=== PATIENT | male | born 1945 | race Caucasian/White ===

== ENCOUNTER 2021-11-21 21:25 | Emergency (ER) | payer OTHER | END 2021-11-22 01:23 | disposition short-term general hospital (02) | LOC: ED 21:25 | DX: S43.004A Unspecified dislocation of right shoulder joint, initial encounter (principal); S00.01XA Abrasion of scalp, initial encounter; W18.39XA Other fall on same level, initial encounter; Y93.89 Activity, other specified; Y92.89 Other specified places as the place of occurrence of the external cause; Y99.8 Other external cause status ==